=== PATIENT | male | born 1985 | race Caucasian/White ===

== ENCOUNTER 2016-06-30 10:04 | Emergency (ER) | payer MEDICAID ==
[~2016-06-30] VITALS: Ht 172.7 cm; Wt 92.0 kg
[~2016-06-30 10:04] MED LIST: CEPH500C PO; HYDR-3498 PO; SENN-53 PO
[2016-06-30 10:08] VITALS: Ht 172.7 cm; Wt 92.0 kg
[2016-06-30] MEDS ORDERED: ACETAMINOPHEN 325 MG TAB PO ONE (10:30)
--- NOTE | 2016-06-30 11:26 | RADRPT ---
PROCEDURE: Lumbar spine series CLINICAL INDICATION: Low back pain TECHNIQUE: Three views of the lumbar spine are available for review COMPARISON: None available FINDINGS: There is mild straightening of the normal lumbar lordosis. Alignment is intact. No acute fracture o r dislocation is seen. Vertebral body heights are well maintained. Intervertebral disk heights are well maintained. Paraspinous soft tissues are grossly unremarkable. IMPRESSION: 1. Nonspecific straightening of the normal lumbar lordosis. 2. Otherwise unremarkable lumbar spine series. RPTAT: KK .Spike Sosa MD, Date Time Electronically viewed and signed by .Spike Sosa MD, MD on 06/30/2016 11:26 .B/
[2016-06-30] MEDS ORDERED: DIAZ-90 PO (11:38)
[2016-06-30] MEDS ORDERED: NAPR-688 PO (11:38)
--- NOTE | 2016-06-30 13:06 | ERD ---
ER Documentation Chief Complaint Date/Time DATE: 06/30/16 TIME: 13:00 Chief Complaint LOWER BACK PAIN X 1 MONTH , WORSE X 2 DAYS HPI This is a 30-year-old male without any medical problems presenting to the emergency department complaining of acute on chronic lower back pain for the past month. Patient states that he had a history of lower back pain that comes and goes in the past. Patient states the pain has worsened in the past 2 days, rating it 8 out of 10. He states that it is increased with movement described as achy. Patient denies any fevers, hematuria, trauma. Patient states that yesterday he went to the clinic and I have given him ibuprofen 800 mg and prednisone, he states that these medications have not helped him, last dose was given this morning. Patient presents asking for an x-ray of his lumbar region ROS All systems reviewed and are negative except as per history of present illness. Medications Home Meds Active Scripts Naproxen* (Naproxen*) 500 Mg Tablet, 500 MG PO BID, #30 TAB Prov:TYLER ROBLES PA-C 06/30/16 Diazepam* (Valium*) 5 Mg Tablet, 5 MG PO Q8 Y for MUSCLE SPASMS, #20 TAB Prov:TYLER ROBLES PA-C 06/30/16 Cephalexin* (Cephalexin*) 500 Mg Capsule, 500 MG PO Q8, #15 CAP Prov:KANDI ROSEN 01/16/16 Sennosides* (Senna Lax*) 8.6 Mg Tablet, 1 TAB PO Q12H Y for CONSTIPATION, #30 TAB Prov:KANDI ROSEN 01/16/16 Hydrocodone Bit-Acetaminophen (Hydrocodone Bit-APAP) 5-325MG Tablet, 1 TAB PO Q6H Y for MODERATE PAIN LEVEL 4-6, #30 TAB Prov:KANDI ROSEN 01/16/16 Allergies Allergies: Coded Allergies: No Known Drug Allergies (Verified Allergy, Unknown, 01/14/16) PMhx/Soc History of Surgery: Yes (HERNIA REPAIR 29 YEARS AGO) Anesthesia Reaction: No Hx Neurological Disorder: No Hx Respiratory Disorders: No Hx Cardiac Disorders: No Hx Psychiatric Problems: No Hx Miscellaneous Medical Probl: No Hx Alcohol Use: No Hx Substance Use: No Hx Tobacco Use: No Physical Exam Vitals Vital Signs Date Time Temp Pulse Resp B/P Pulse Ox O2 Delivery O2 Flow Rate FiO2 06/30/16 10:08 98.1 84 16 119/66 98 Physical Exam GENERAL: WD/WN, in no apparent distress, non-toxic appearing HENT: NC/AT EYES: Conjunctiva normal NECK: Supple PULM: Normal labored breathing CV: Good capillary refill GI: Non-distended, no guarding BACK: no deformities noted, normal spinal curvature, TTP on lumbar region, non- tender on spine midline, EXT: No clubbing, cyanosis, or edema NEURO: Moves on all fours, sensation intact, normal gait SKIN: intact PSYCH: Normal mood Results 24 hrs Current Medications Medications (Trade) Dose Ordered Sig/Leeann Route PRN Reason Start Time Stop Time Status Last Admin Dose Admin Acetaminophen (Tylenol Tab) 650 mg ONCE ONCE PO 06/30/16 10:30 06/30/16 10:31 DC 06/30/16 10:33 Procedures/MDM 30-year-old male presents to the ER with lumbar back strain and muscle spasms, low suspicion for spinal abscess, vertebral fracture, cauda equina syndrome, spinal stenosis due to physical examination. Patient was seen at the clinic yesterday and was given ibuprofen and prednisone for his back pain. Chest x- ray was done in the ED radiologist stated: 1. Nonspecific straightening of the normal lumbar lordosis. 2. Otherwise unremarkable lumbar spine series. Patient is neurovascularly intact in hematoma stable for discharge for home. I discussed to continue to follow-up with primary care physician to get a referral to see physical therapist since his been going on for a month. Prescriptions naproxen and Valium 5 mg was given to patient, discussed to return to the ED if not improving as expected or follow-up with a primary care physician. Patient understood and agreed with this plan. Departure Diagnosis: Primary Impression: Lumbar strain Additional Impression: Muscle spasm Condition: Stable Patient Instructions: Muscle Spasm, Causes of Lumbar (Low Back) Pain, Back Exercises, Lumbar Referrals: your primary care physician Additional Instructions: XRAY of your back shows " nonspeficic straightening of the normal lumbar lordosis" which shows that you have bad posture and muscle spasms. It will be best if you follow up with your primary care doctor and get a referral to see physicial therapist FOLLOW UP WITH YOUR PRIMARY CARE PHYSICIAN TOMORROW.Return to this facility if you are not improving as expected. Take all medicines as directed. You have been given a medicine valium causes drowsiness.DO NOT DRIVE OR OPERATE DANGEROUS MACHINERY while taking this medicine! Return to this facility if you are not improving as expected. TYLER ROBLES PA-C June 30, 2016 13:06
== END 2016-06-30 11:55 | disposition home or self-care (01) ==
LOC: FTE 10:04
DX: S39.012A Strain of muscle, fascia and tendon of lower back, initial encounter (principal); X58.XXXA Exposure to other specified factors, initial encounter; Y92.9 Unspecified place or not applicable
CPT/HCPCS: 72100; Z7502; Z7610

== ENCOUNTER 2017-05-25 21:12 | Emergency (ER) | END 2017-05-26 02:52 | disposition home or self-care (01) ==

== ENCOUNTER 2017-09-30 20:04 | Emergency (ER) | END 2017-09-30 23:32 | disposition home or self-care (01) ==